=== PATIENT | male | born 1940 | race Caucasian/White ===

== ENCOUNTER → 2017-11-30 12:57 | Outpatient (CLI) | payer MEDICARE, OTHER ==
[2016-03-07 11:01] VITALS: BMI 35.6
[~2017-11-30 12:57] MED LIST: ATACAND HCT PO; BAYER CHEWABLE81 MG PO; NEURONTIN 300300 MG PO; PLAVIX75 MG PO; VOLTAREN75 MG PO; VYTORIN 10-20 M1 TAB PO
== END | disposition home or self-care (01) ==
LOC: D.US 12:57
DX: I65.23 Occlusion and stenosis of bilateral carotid arteries (principal)

== ENCOUNTER → 2018-12-24 16:04 | Outpatient (CLI) | payer MEDICARE, OTHER ==
[2016-03-07 11:01] VITALS: BMI 35.6
== END | disposition home or self-care (01) ==
LOC: D.US 13:30
PROVIDERS: ATTEND Internal Medicine Cardiovascular Disease
DX: I65.23 Occlusion and stenosis of bilateral carotid arteries (principal)

== ENCOUNTER → 2019-12-02 11:05 | Outpatient (CLI) | payer MEDICARE, OTHER ==
[2016-03-07 11:01] VITALS: BMI 35.6
== END | disposition home or self-care (01) ==
LOC: D.US 11:05
PROVIDERS: ATTEND Internal Medicine Cardiovascular Disease
DX: I65.23 Occlusion and stenosis of bilateral carotid arteries (principal)

== ENCOUNTER 2020-12-17 13:30 | Inpatient (IN) | payer MEDICARE, OTHER ==
[2020-12-17] VITALS (25 sets, daily range): BP systolic 54–180; BP diastolic 32–81; BMI 33.0
[~2020-12-17] VITALS: Ht 162.6 cm; Wt 93.6 kg
[2020-12-17] MEDS ORDERED: DONEPEZIL HCL10 MG PO (14:06)
[2020-12-17] MEDS ORDERED: ZOLOFT100 MG PO (14:06)
--- NOTE | 2020-12-17 14:15 | NUR ---
PT ARRIVES TO ROOM VIA WHEELCHAIR ESCORTED BY HOSPITAL VOLUNTEER STAFF AND SPOUSE. PT IS AAO X 4 AND ANSWERS ALL QUESTIONS APPROPRIATELY. PT IS WEAK WITH POSITION CHANGE AND AMBULATING FROM WHEELCHAIR TO BED. FALL PRECAUTIONS PLACED. UROSTOMY NOTED TO RLQ WITH DARK YELLOW URINE THAT APPEARED TO HAVE SEDIMENT/EXUDATE IN COLLECTION BAG. URINE SAMPLE WILL BE COLLECTED PER ORDER. PIV TO LEFT A/C X 2 ATTEMPT PLACED. PT TOLERATED WELL. INCENTIVE SPIROMETER GIVEN TO PT AND EDUCATION GIVEN. PT VERBALIZES UNDERSTANDING AND DENIES QUESTIONS. WILL COMPLETE ADMISSION REQUIREMENTS. PT AND PT SPOUSE DENY FURTHER NEEDS AT THIS TIME. ALL FALL PRECAUTIONS IN PLACE. BED IS IN THE LOWEST POSITION. CALL LIGHT AND BEDSIDE TABLE ARE WITHIN REACH. SIDE RAILS X 2. WILL CONT TO MONITOR.
--- NOTE | 2020-12-17 14:58 | NUR ---
UA COLLECTED FROM UROSTOMY.
[2020-12-17 15:20] LABS: BILIRUBIN NEGATIVE (NEGATIVE); KETONE NEGATIVE (NEGATIVE); NITRITE NEGATIVE (NEGATIVE); UROBILINOGEN NORMAL mg/dL (< 2)
[2020-12-17 15:27] LABS: SQUAMOUS EPITHELIAL 0-5 HPF (0-4); WHITE CELLS - URINE 25-50 HPF (0-1)
[2020-12-17 15:28] LABS: BACTERIA MOD HPF (NONE SEEN)
[2020-12-17 15:29] LABS: BASOPHILS 0.2 % (0-2); EOSINOPHILS 0.4 % (0-7); HEMATOCRIT 40.9 % (42.0-54.0); HEMOGLOBIN 13.4 g/dL (13.5-17.5); IMMATURE GRANULOCYTES 0.5 % (0-5); LYMPHOCYTE ABS# 1.14 10x3/uL (1.32-3.57); LYMPHOCYTES 8.7 % (15-50); MCH 30.9 pg (26.0-34.0); MCHC 32.8 g/dL (31.0-37.0); MCV 94.2 fL (80.0-100.0); MEAN PLATELET VOLUME 11.4 fL (7.4-10.4); MONOCYTES 8.1 % (2-11); NEUTROPHILS 82.1 % (40-80); PLATELET COUNT 224 10x3/uL (130-400); RBC 4.34 10x6/uL (4.20-6.10); RDW 14.2 % (11.5-14.5)
[2020-12-17 15:35] LABS: INR 1.39 (0.85-1.17); PROTIME 15.8 SECONDS (11.6-15.0)
[2020-12-17 15:47] LABS: ALBUMIN 2.6 g/dL (3.4-5.0); ANION GAP 20.4 mmol/L (8-16); BILIRUBIN - TOTAL 0.85 mg/dL (0.2-1.3); CALCIUM 9.6 mg/dL (8.5-10.1); CARBON DIOXIDE 17.6 mmol/L (21.0-32.0); PROTEIN - SERUM 6.6 g/dL (6.4-8.2)
--- NOTE | 2020-12-17 16:00 | NUR ---
CRITICAL LAB RESULTS RECD FROM [facility]. BUN 132 AND K+ OF 7.0. MAURICE MORENO APRN NOTIFIED OF CRITICAL LAB RESULTS. NO ORDERS AT THIS TIME.
--- NOTE | 2020-12-17 16:24 | NUR ---
PT TRANSPORTED OFF FLOOR VIA BED ESCORTED BY HOSPITAL STAFF FOR CT.
--- NOTE | 2020-12-17 16:33 | NUR ---
PT RETURNS TO ROOM VIA BED ESCORTED BY HOSPITAL STAFF AND IS AAO X 4 AND DENIES PRESENCE OF SOB/DYSPNEA/PAIN/N/V AT THIS TIME.
[2020-12-17 16:37] LABS: ALBUMIN 2.6 g/dL (3.4-5.0); ANION GAP 20.2 mmol/L (8-16); BILIRUBIN - TOTAL 0.81 mg/dL (0.2-1.3); CALCIUM 9.5 mg/dL (8.5-10.1); CARBON DIOXIDE 18.8 mmol/L (21.0-32.0); CREATININE - SERUM 4.9 mg/dL (0.6-1.3); PROTEIN - SERUM 6.5 g/dL (6.4-8.2)
--- NOTE | 2020-12-17 16:48 | NUR ---
ARRIVES WITH MED SURG STAFF, PLACED TO ICU SAFELY AND PUT ON MONITORS. NO COMPLAINTS AT THIS TIME.
--- NOTE | 2020-12-17 16:59 | NUR ---
PT TRANSFERRED TO ICU. REPORTS CALLED. ALL PERSONAL BELONGINGS SENT WITH PT. ATTEMPT PHONE CALL MADE TO PT SPOUSE TO NOTIFY OF TRANSFER. NO ANSWER. UNABLE TO LEAVE .
[2020-12-17] MEDS ORDERED: BACTRIM DS TAB1 EAC1 ×2 (17:11→17:17)
--- NOTE | 2020-12-17 17:35 | NUR ---
CORRECTION: PT DOES NOT HAVE A COLOSTOMY. PT HAS A UROSTOMY WITH YELLOW OUTPUT.
[2020-12-18] VITALS (89 sets, daily range): BP systolic 70–169; BP diastolic 27–108; BMI 32.6
[2020-12-18 04:28] LABS: BASOPHILS 0.1 % (0-2); EOSINOPHILS 1.4 % (0-7); HEMATOCRIT 37.9 % (42.0-54.0); HEMOGLOBIN 12.6 g/dL (13.5-17.5); IMMATURE GRANULOCYTES 0.6 % (0-5); LYMPHOCYTE ABS# 1.76 10x3/uL (1.32-3.57); MCH 30.4 pg (26.0-34.0); MCHC 33.2 g/dL (31.0-37.0); MCV 91.3 fL (80.0-100.0); MEAN PLATELET VOLUME 11.5 fL (7.4-10.4); MONOCYTES 11.2 % (2-11); NEUTROPHIL ABS# 17.32 10x3/uL (1.78-5.38); NEUTROPHILS 78.7 % (40-80); PLATELET COUNT 256 10x3/uL (130-400); RBC 4.15 10x6/uL (4.20-6.10)
[2020-12-18 04:39] LABS: ALBUMIN 2.3 g/dL (3.4-5.0); ANION GAP 15.6 mmol/L (8-16); BILIRUBIN - TOTAL 1.02 mg/dL (0.2-1.3); CALCIUM 8.7 mg/dL (8.5-10.1); POTASSIUM - SERUM 5.2 mmol/L (3.5-5.1); PROTEIN - SERUM 6.2 g/dL (6.4-8.2)
[2020-12-18 04:40] LABS: CARBON DIOXIDE 24.6 mmol/L (21.0-32.0)
[2020-12-18 15:11] LABS: ANION GAP 17.4 mmol/L (8-16); CALCIUM 9.4 mg/dL (8.5-10.1); POTASSIUM - SERUM 5.4 mmol/L (3.5-5.1)
--- NOTE | 2020-12-18 20:00 | NUR ---
REC'D REPORT AND ASSUMED CARE. INITIAL ASSESSMENT PER FLOW SHEET. LEFT ARM ART LINE IN PLACE, LINE LEVELED, FLUSHED AND ZEROED. NOT THAT BP IS POSITIONAL BUT NIBP WIS ALSO TAKING. WILL MONITOR BOTH FOR EFFECT FROM LEVOPHED.
--- NOTE | 2020-12-18 23:30 | NUR ---
S/W MORE CONFUSED AT PRESENT. REMOVING GOWN, TRYING TO PULL AT ART LINE. REMINDED TO LAY STILL. REPOSITIONS SELF
[2020-12-19] VITALS (49 sets, daily range): BP systolic 82–128; BP diastolic 40–78
[2020-12-19 03:37] LABS: BASOPHILS 0.1 % (0-2); EOSINOPHILS 0.1 % (0-7); HEMATOCRIT 39.2 % (42.0-54.0); IMMATURE GRANULOCYTES 0.4 % (0-5); LYMPHOCYTE ABS# 0.98 10x3/uL (1.32-3.57); MCH 30.7 pg (26.0-34.0); MCHC 33.2 g/dL (31.0-37.0); MCV 92.5 fL (80.0-100.0); MEAN PLATELET VOLUME 11.4 fL (7.4-10.4); MONOCYTES 3.3 % (2-11); NEUTROPHIL ABS# 17.87 10x3/uL (1.78-5.38); NEUTROPHILS 91.1 % (40-80); RBC 4.24 10x6/uL (4.20-6.10); RDW 14.2 % (11.5-14.5); WBC 19.6 10x3/uL (4.8-10.8)
[2020-12-19 03:38] LABS: PLATELET COUNT 187 10x3/uL (130-400)
[2020-12-19 03:51] LABS: ALBUMIN 2.2 g/dL (3.4-5.0); ANION GAP 20.6 mmol/L (8-16); BILIRUBIN - TOTAL 1.21 mg/dL (0.2-1.3); CALCIUM 9.3 mg/dL (8.5-10.1); CREATININE - SERUM 2.3 mg/dL (0.6-1.3); POTASSIUM - SERUM 4.6 mmol/L (3.5-5.1); VANCOMYCIN - RANDOM 8.4 ug/mL (10.0-20.0)
--- NOTE | 2020-12-19 05:30 | NUR ---
1 LARGE BM, GIVEN CHG BATH AND RADHA CARE DOWN. LINENS ALL CHANGED. ART LINE PULLED PER DR. STARK, CATHETER INTACT. PRESSURE HELD UNTIL NO FURTHER BLEEDING. PRESSURE BANDAGE APPLIED
[2020-12-20] VITALS (22 sets, daily range): BP systolic 93–136; BP diastolic 47–100
[2020-12-20 04:29] LABS: HEMATOCRIT 37.2 % (42.0-54.0); HEMOGLOBIN 12.3 g/dL (13.5-17.5); LYMPHOCYTE ABS# 1.17 10x3/uL (1.32-3.57); MCH 30.2 pg (26.0-34.0); MCHC 33.1 g/dL (31.0-37.0); MCV 91.4 fL (80.0-100.0); MEAN PLATELET VOLUME 11.4 fL (7.4-10.4); NEUTROPHIL ABS# 18.93 10x3/uL (1.78-5.38); PLATELET COUNT 173 10x3/uL (130-400); RBC 4.07 10x6/uL (4.20-6.10); RDW 14.1 % (11.5-14.5); WBC 21.9 10x3/uL (4.8-10.8)
[2020-12-20 04:39] LABS: EOSINOPHILS 1 % (0-7); LYMPHOCYTES 7 % (15-50); MONOCYTES 5 % (2-11); NEUTROPHILS 87 % (40-80); PLATELET ESTIMATE NORMAL
[2020-12-20 05:03] LABS: ALBUMIN 2.1 g/dL (3.4-5.0); ANION GAP 16.3 mmol/L (8-16); BILIRUBIN - TOTAL 1.64 mg/dL (0.2-1.3); CALCIUM 9.5 mg/dL (8.5-10.1); CARBON DIOXIDE 23.5 mmol/L (21.0-32.0); CREATININE - SERUM 2.4 mg/dL (0.6-1.3); POTASSIUM - SERUM 4.8 mmol/L (3.5-5.1); PROTEIN - SERUM 5.6 g/dL (6.4-8.2); VANCOMYCIN - RANDOM 14.1 ug/mL (10.0-20.0)
--- NOTE | 2020-12-20 07:30 | NUR ---
LAYING IN BED RESTING, PT SLIGHTLY CONFUSED, ATTEMPTED TO RE ORIENT, CALL LIGHT IN REACH, WILL MONITOR
--- NOTE | 2020-12-20 09:10 | NUR ---
DR CUEVAS HERE SEEING PATIENT
--- NOTE | 2020-12-20 15:00 | NUR ---
PT SLEEPING, NO DISTRESS NOTED, CALL LIGHT IN REACH, WILL MONITOR
--- NOTE | 2020-12-20 17:15 | NUR ---
assisted pt with jello, tolerated well, will monitor
[2020-12-21] VITALS (14 sets, daily range): BP systolic 99–115; BP diastolic 46–58
[2020-12-21 06:19] LABS: ANION GAP 16.3 mmol/L (8-16); BILIRUBIN - TOTAL 2.03 mg/dL (0.2-1.3); CALCIUM 9.3 mg/dL (8.5-10.1); CARBON DIOXIDE 22.4 mmol/L (21.0-32.0); CREATININE - SERUM 2.4 mg/dL (0.6-1.3); POTASSIUM - SERUM 4.7 mmol/L (3.5-5.1); PROTEIN - SERUM 5.4 g/dL (6.4-8.2); VANCOMYCIN - RANDOM 17.2 ug/mL (10.0-20.0)
[2020-12-21 06:39] LABS: BASOPHILS 0 % (0-2); EOSINOPHILS 0.1 % (0-7); HEMOGLOBIN 12.5 g/dL (13.5-17.5); IMMATURE GRANULOCYTES 0.5 % (0-5); LYMPHOCYTES 3.5 % (15-50); MCH 30.7 pg (26.0-34.0); MCHC 33.8 g/dL (31.0-37.0); MCV 90.9 fL (80.0-100.0); MEAN PLATELET VOLUME 11.6 fL (7.4-10.4); MONOCYTES 5.5 % (2-11); NEUTROPHIL ABS# 20.93 10x3/uL (1.78-5.38); NEUTROPHILS 90.4 % (40-80); PLATELET COUNT 159 10x3/uL (130-400); RBC 4.07 10x6/uL (4.20-6.10); RDW 14.6 % (11.5-14.5); WBC 23.1 10x3/uL (4.8-10.8)
--- NOTE | 2020-12-21 08:00 | NUR ---
ASSISTED PT WITH BREAKFAST, TOLERATED WELL
--- NOTE | 2020-12-21 10:09 | NUR ---
Nutrition follow-up: Pts diet downgraded to clear liquids from renal Pt tolerating clears per nurse; with some confusion. Labs reviewed Wt: 203# +BM RDN will monitor patients diet advancement, tolerance and progress. Follow-up: 12/23/20
--- NOTE | 2020-12-21 12:15 | NUR ---
assisting pt with lunch tray
--- NOTE | 2020-12-21 13:45 | NUR ---
therapy in with patient
--- NOTE | 2020-12-21 14:19 | NUR ---
report called to lenin del angel on med 2
--- NOTE | 2020-12-21 14:30 | NUR ---
pt transferred to 2111 via stretcher, belongings sent with patient, call light in reach, bedside report given
--- NOTE | 2020-12-21 15:32 | NUR ---
PATIENT AAOX3 SEMI FOLWERS IN BED, RESP EVEN AND NON LABORED, NO S/S OF DISTRESS, IV INFUSING, NO FURTHER NEEDS AT THIS TIME, MARINA, RAMOSP
--- NOTE | 2020-12-21 20:30 | NUR ---
REPORT RECEIVED. PT A&O, UP IN BED. NO S/S OF DISTRESS OBSERVED. RR EVEN & UNLABORED ON RA. R AC 20G WITH NS @ 50CC/HR INFUSING. R TRIALYSIS IN PLACE & SL. UROSTOMY BAG IN PLACE. BED LOCKED AND LOWERED, CL IN REACH. ASSESSMENT COMPLETE. WILL CONT POC.
[2020-12-22] VITALS (7 sets, daily range): BP systolic 103–147; BP diastolic 41–53
--- NOTE | 2020-12-22 02:06 | NUR ---
350CC REMOVED FROM UROSTOMY BAG.
[2020-12-22 07:02] LABS: HEMATOCRIT 40.1 % (42.0-54.0); HEMOGLOBIN 12.8 g/dL (13.5-17.5); MCH 29.8 pg (26.0-34.0); MCV 93.1 fL (80.0-100.0); MEAN PLATELET VOLUME 9.3 fL (7.4-10.4); PLATELET COUNT 173 10x3/uL (130-400); RDW 14.2 % (11.5-14.5); WBC 23.9 10x3/uL (4.8-10.8)
[2020-12-22 07:28] LABS: ALBUMIN 1.8 g/dL (3.4-5.0); ANION GAP 18.9 mmol/L (8-16); BILIRUBIN - TOTAL 2.33 mg/dL (0.2-1.3); CALCIUM 8.1 mg/dL (8.5-10.1); POTASSIUM - SERUM 3.9 mmol/L (3.5-5.1); PROTEIN - SERUM 4.9 g/dL (6.4-8.2); VANCOMYCIN - RANDOM 18.1 ug/mL (10.0-20.0)
--- NOTE | 2020-12-22 11:37 | NUR ---
PATIENT AAOX4 SITTING IN BEDSIDE CHAIR WITH THE HELP OF PT, AT BEDSIDE, RESP EVEN AND NON LABORED, NO S/S OF DISTRESS, MEDICATIONS ADMINISTERED WITH NO COMPLICATIONS, PATIENTS ASKED ABOUT WHEN DIALYSIS WOULD START AGAIN, MACHINE HEEL SEAT LASTER ANA DENNIS STATED THAT WE MAY NOT HAVE TO CONTINUE DIALYSIS A LONG KIDNEY FUNCTIONS STAY WNL FOR PATIENT, DRINKS PROVIDED, NO FURTHER NEEDS AT THIS TIME, MARINA, DAINA
[2020-12-22 13:49] LABS: LYMPHOCYTES 16 % (15-50); MONOCYTES 14 % (2-11); NEUTROPHILS 69 % (40-80); PLATELET ESTIMATE NORMAL
--- NOTE | 2020-12-22 14:51 | NUR ---
I have reviewed this patient and I concur with the Shift Assessment completed by the Licensed Practical Nurse today this shift.
--- NOTE | 2020-12-22 14:55 | NUR ---
ALERT. ASSIST UP TO BEDSIDE COMMODE. PRBC TRANSFUSION CONTINUED. NO SIGNS OF REACTION. INCREASE RATE TO 120ml/HR.
--- NOTE | 2020-12-22 23:17 | NUR ---
1999-+ RESTING IN BED. SLOW TO RESPOND TO QUESTIONS NOT ABLE TO GIVE ME A REASON WHY HE IS IN THE HOSPITAL BESIDES THAT HE IS SICK. HAS UROSTOMY THAT IS DRAINING YELLOW URINE. PT STATES THAT HE DOESN'T TAKE CARE OF IT HIS DOES.
[2020-12-23] VITALS: BP 133/32
[2020-12-23 04:00] VITALS: BP 114/51
--- NOTE | 2020-12-23 04:51 | NUR ---
AM LABS DRAWN FROM TRIALYSIS, LABELED AT BEDSIDE, TAKEN TO LAB. UROSTOMY BAG WAS TWISTED AT BASE OF BAG, DARK YELLOW URINE WITH PURULENT STRANDS/SEDIMENT THROUGHOUT. 550ML UOP OVER NIGHT
[2020-12-23 05:34] LABS: BASOPHILS 0.5 % (0-2); EOSINOPHILS 3.2 % (0-7); HEMATOCRIT 38.6 % (42.0-54.0); HEMOGLOBIN 12.3 g/dL (13.5-17.5); LYMPHOCYTES 5.4 % (15-50); MCH 29.6 pg (26.0-34.0); MCHC 31.8 g/dL (31.0-37.0); MCV 92.9 fL (80.0-100.0); MEAN PLATELET VOLUME 9.4 fL (7.4-10.4); MONOCYTES 6.9 % (2-11); PLATELET COUNT 151 10x3/uL (130-400); RBC 4.16 10x6/uL (4.20-6.10); RDW 14.2 % (11.5-14.5); WBC 22.1 10x3/uL (4.8-10.8)
[2020-12-23 07:19] LABS: ALBUMIN 1.9 g/dL (3.4-5.0); BILIRUBIN - TOTAL 3.04 mg/dL (0.2-1.3); CARBON DIOXIDE 17.7 mmol/L (21.0-32.0); CREATININE - SERUM 2.3 mg/dL (0.6-1.3); PROTEIN - SERUM 5.3 g/dL (6.4-8.2)
[2020-12-23 07:20] LABS: POTASSIUM - SERUM 4.7 mmol/L (3.5-5.1)
[2020-12-23 08:00] VITALS: BP 148/46
[2020-12-23 10:48] LABS: CKMB 3.1 U/L (0.0-3.6); CREATINE KINASE 339 UL (21-232)
--- NOTE | 2020-12-23 12:27 | NUR ---
Nutrition Reassessment/Follow-up: Pt sleeping soundly this AM. Discussed in IDT. Diet advanced to cardiac. Noted plans to remove TDC with no further anticipated need for HD. Rehab screen pending. Diet: Cardiac No new wt; last wt: 202.8# (12/21)Adj BW: 148.2# Labs noted: BUN 79, Cre 2.3, GFR 29, Alb 1.9, elev LFTs Meds noted: Florajen, Protonix, NS @ 50, electrolyte protocol Est needs: 0899-0662 kcal/day (25-30 kcal/kg adj BW) 55-75 g protein/day (0.6-0.8 g/kg actual BW) 7932-9426 mL fluid/day (1 mL/kcal) or per MD Nutrition Diagnosis: -Altered nutrition-related lab values R/T kidney dysfunction AEB BUN 79, Cre 2.3, GFR 29. Nutrition Goals: -PO intake >=75% avg of meals/snacks. -Stable dry wt. Nutrition Intervention: -Encourage PO intake and honor food preferences within diet restrictions. -Monitor wt. -RD will follow up within 5 days.
[2020-12-23 16:00] VITALS: BP 131/61
--- NOTE | 2020-12-23 18:02 | NUR ---
I have reviewed this patient and I concur with the Shift Assessment completed by the Licensed Practical Nurse today this shift.
[2020-12-23 21:32] VITALS: BP 134/46
[2020-12-24] VITALS (7 sets, daily range): BP systolic 127–160; BP diastolic 30–68
--- NOTE | 2020-12-24 01:54 | NUR ---
12/23/20 @ 2015 PT RESTING IN BED. ENCOURAGED TO MOVE UPPER EXTREMITIES & REPOSITION SELF TO HELP WITH EDEMA & PNUEMONIA PREVENTION. UNABLE TO COMPREHEND. DINNER TRAY WAS STILL SITTING ON TABLE & HAD'T BEEN TOUCHED BY PT. OFFERED TO ASSIST HIM. HE JUST WANTED SOMETHING TO DRINK. WILL CONTINUE TO MONITOR.
[2020-12-24 06:24] LABS: HEMATOCRIT 40.8 % (42.0-54.0); HEMOGLOBIN 13.7 g/dL (13.5-17.5); LYMPHOCYTE ABS# 1.95 10x3/uL (1.32-3.57); MCHC 33.6 g/dL (31.0-37.0); MCV 89.3 fL (80.0-100.0); MEAN PLATELET VOLUME 12.2 fL (7.4-10.4); PLATELET COUNT 111 10x3/uL (130-400); RBC 4.57 10x6/uL (4.20-6.10); RDW 14.8 % (11.5-14.5)
--- NOTE | 2020-12-24 06:50 | NUR ---
PATIENT RESTING IN BED. NO CURRENT PAIN OR DISTRESS. ALERT AND CAN FOLLOW COMMANDS. SLOW TO RESPOND. RSP EVEN AND UNLABORED
[2020-12-24 07:11] LABS: LYMPHOCYTES 13 % (15-50); NEUTROPHILS 87 % (40-80); PLATELET ESTIMATE NORMAL
[2020-12-24 07:41] LABS: ALBUMIN 1.9 g/dL (3.4-5.0); ANION GAP 21.1 mmol/L (8-16); BILIRUBIN - TOTAL 4.26 mg/dL (0.2-1.3); CALCIUM 9.4 mg/dL (8.5-10.1); CARBON DIOXIDE 16.2 mmol/L (21.0-32.0); CREATININE - SERUM 2.5 mg/dL (0.6-1.3); POTASSIUM - SERUM 5.3 mmol/L (3.5-5.1); PROTEIN - SERUM 5.4 g/dL (6.4-8.2); VANCOMYCIN - RANDOM 19.9 ug/mL (10.0-20.0)
--- NOTE | 2020-12-24 09:37 | NUR ---
PATIENT AWAKE ALERT TO SELF, FOLLOWS DIRECTIONS. WILL ANSWER QUESTIONS. IS SLOW TO RESPOND. RESP EVEN AND UNLABORED. O2 SAT 98 ON ROOM AIR. IV TO R FOREARM PATENT. RUNNING KVO LACTATED RINGERS. HEART SOUNDS SR WITH PVCS PER TELE. UROSTOMY WITH THICK DARK YELLOW URINE SOME SEDIMENT NOTED. PATIENT IS EDEMEDOUS BILATERAL LOWER AND UPPER EXTREMITIES. PITTING +3 PATIENT IS FULL ASSIST REQUIRES ASSISTANCE WITH EATING AND ALL ADLS.
--- NOTE | 2020-12-24 14:31 | NUR ---
NOTIFIED RUCHI ALEJO RN THAT PATIENT IS ACCEPTED TO REHAB WHEN IS STABLE FOR DISCHARGE. - JACOB VIEIRA LPN, CLINICAL LIAISON
--- NOTE | 2020-12-24 17:44 | NUR ---
PATIENT RESTING COMFORTABLY, IV ABT ADMINISTERED WITH NO ADVERSE REACTIONS. RESP EVEN AND UNLABORED. DIET TO FULL LIQUID. MORE INTERACTIVE LATER IN SHIFT.
--- NOTE | 2020-12-24 21:31 | NUR ---
PT IN BED, APPEARS SOB OF BREATH W/ LABORED, SHALLOW BREATHING. O2 SAT MID 80'S ON ROOM AIR. 2L/NC PLACED ON PT. CXR ORDERED. CRACKLES THROUGHOUT BILAT LUNG BASES. I.S. ENCOURAGED WEAK EFFORT. TELEMETRY-SR 74. HAD LARGE BM, CBC/CLC DONE. PT C/O PAIN WITH TURNING FROM SIDE TO SIDE. GENERALIZED ANASARCA 2-3+ CONTACTED ALCIDES STRATTON. MESSAGE LEFT FOR NEPHROLOGY W/ ANSERING SERVICE
[2020-12-25 03:44] VITALS: BP 153/42
[2020-12-25 06:01] LABS: BASOPHILS 0.6 % (0-2); EOSINOPHILS 2.8 % (0-7); HEMATOCRIT 36.8 % (42.0-54.0); LYMPHOCYTES 6.4 % (15-50); MCH 29.9 pg (26.0-34.0); MCHC 32.5 g/dL (31.0-37.0); MCV 92.2 fL (80.0-100.0); MEAN PLATELET VOLUME 9.7 fL (7.4-10.4); MONOCYTES 6.5 % (2-11); NEUTROPHILS 83.7 % (40-80); PLATELET COUNT 148 10x3/uL (130-400); RBC 3.99 10x6/uL (4.20-6.10); RDW 14.6 % (11.5-14.5); WBC 31.5 10x3/uL (4.8-10.8)
[2020-12-25 06:13] LABS: ALBUMIN 1.9 g/dL (3.4-5.0); ANION GAP 22.8 mmol/L (8-16); BILIRUBIN - TOTAL 4.97 mg/dL (0.2-1.3); CALCIUM 9.6 mg/dL (8.5-10.1); CARBON DIOXIDE 15.5 mmol/L (21.0-32.0); CREATININE - SERUM 2.5 mg/dL (0.6-1.3); POTASSIUM - SERUM 5.3 mmol/L (3.5-5.1); PROTEIN - SERUM 4.6 g/dL (6.4-8.2); VANCOMYCIN - RANDOM 14.8 ug/mL (10.0-20.0)
--- NOTE | 2020-12-25 06:50 | NUR ---
RECIEVED BEDSIDE REPORT. PATIENT AROUSED TO VOICE. UROSTOMY INTACT ONLY 350 OUTPUT LAST NIGHT. BUN ELEVATED 105 THIS AM. RESP UNLABORED AT THIS TIME.
--- NOTE | 2020-12-25 07:52 | NUR ---
PATIENT AWAKE AND SLOW TO RESPOND. RESP EVEN AND UNLABORED. LUNG SOUNDS WITH CRACKLES IN LOWER BASES. LABS ELEVATED. WBC 31.5 EDEMA TO BILATERAL UPPER AND LOWER EXTREMITIES PITTING +4. SPOKE WITH DR. AGUILERA ABOUT CONDITION OF PATIENT AND LABS. DR. AGUILERA STATED "HE WOULD EXAMINE PATIENT AND PUT IN ORDERS NEEDED."
[2020-12-25 09:20] VITALS: BP 131/45
--- NOTE | 2020-12-25 09:28 | OP ---
PATIENT NAME: SANA ZHAO MEDICAL RECORD: [id number] :39 LOCATION:D.M2 D.2111 ADMISSION DATE:12/17/20 SURGEON: NIKO DYKES MD DATE OF OPERATION: 12/17/2020 PREOPERATIVE DIAGNOSES: 1. Need for IV access. 2. Acute renal failure. 3. Urosepsis. 4. Septic shock. 5. Lactic acidosis. POSTOPERATIVE DIAGNOSES: 1. Need for IV access. 2. Acute renal failure. 3. Urosepsis. 4. Septic shock. 5. Lactic acidosis. PROCEDURE: 1. Right IJ 20-cm Trialysis catheter placement. 2. Left radial art line placement. SURGEON: Niko Dykes MD DESCRIPTION OF PROCEDURE: The patient's right neck was prepped and draped in sterile fashion. A 5 mL of 1% lidocaine with epinephrine was infused into the surrounding tissues. Using ultrasound guidance, a needle was used to cannulate the right internal jugular vein. A guidewire was advanced with ease. Over this wire, a dilator was placed followed by the Trialysis catheter. The catheter aspirated nonpulsatile dark blood and flushed easily in all 3 ports. This was sutured into place with 3-0 nylons and dressed appropriately. We then prepped the patient's right radial region. A total of 3 mL of 1% lidocaine with epinephrine was infused into the surrounding tissues. A 20-gauge dart arterial catheter was inserted to the left radial artery. We were able to cannulate the vessel and had good pulsatile flow. This was sutured into place with 3-0 silks. At the conclusion of this, we noticed that there was a good arterial tracing present that correlated with the cuff pressure. This was then dressed appropriately. COMPLICATIONS: None. CONDITION Fair. ANESTHESIA: Local. BLOOD LOSS: Minimal. Procedure done in the ICU at the bedside. TRANSINT:[id number] Voice Confirmation ID: [id number] DOCUMENT ID: [id number] OPERATIVE REPORT [id number] SANA ZHAO NIKO DYKES MD at 0928 CC: [id number] DICTATION DATE: 12/18/20 08 SCREW MACHINE SET UP OPERATOR: 12/18/20 1425 ADM IN [id number] [place] [address]
[2020-12-25 12:42] VITALS: BP 145/50
--- NOTE | 2020-12-25 13:16 | NUR ---
Nutrition Follow-up: Pt reports poor appetite/PO intake. Declines nutrition supplements. Nursing reports +4 pitting edema to kane upper & lower extremities. Per renal, if 3PM renal labs worsening, will need to consider resuming HD. Diet: Full Liquid Wt: 202# (12/24) Last BM: 12/24 Labs noted: K+ 5.3, BUN 105, Cre 2.5, GFR 26, elev LFTs, Alb 1.9, Amylase 180, Lipase 541 Meds noted: Protonix, Florajen, NS @ 100, electrolyte protocol -Encourage PO intake and honor food preferences within diet restrictions. -Monitor wt. -RD will follow up within 3-4 days.
--- NOTE | 2020-12-25 14:19 | NUR ---
SCDS IN PLACE AND IN USE. PATIENT RESTING COMFORTABLY. NO CURRENT PAIN OR DISTRESS. RESP EVEN AND UNLABORED. LUNG SOUNDS WET WITH LOWER LOBE CRACKLES. HEART SOUNDS REG RATE AND RYTHYM. TELE SR PVC. BILATERAL LOWER AND UPPER EXTREMITEY EDEMA NOTED +2.
[2020-12-25 15:43] LABS: ALBUMIN 1.8 g/dL (3.4-5.0); ANION GAP 24.3 mmol/L (8-16); BILIRUBIN - TOTAL 5.19 mg/dL (0.2-1.3); CARBON DIOXIDE 13.9 mmol/L (21.0-32.0); CREATININE - SERUM 2.7 mg/dL (0.6-1.3); POTASSIUM - SERUM 5.2 mmol/L (3.5-5.1); PROTEIN - SERUM 4.5 g/dL (6.4-8.2)
--- NOTE | 2020-12-25 15:57 | NUR ---
CONTACTED RENAL ABOUT CRITICAL LAB BUN 113 NO CHANGES AT THIS TIME ORDER.
[2020-12-25 16:57] VITALS: BP 129/41
--- NOTE | 2020-12-25 19:30 | NUR ---
RECEIVED REPORT, WILL ASSUME CARE OF PT, SLEEPING, BUT AROUSED TO VOICE, IV-R. UPPER ARM, [id number], BED IS LOW, SRX2, CALL LIGHT IN REACH, WILL CONTINUE PLAN OF CARE
[2020-12-25 20:45] VITALS: BP 147/39
[2020-12-26] VITALS (45 sets, daily range): BP systolic 71–153; BP diastolic 23–59; Ht 162.6 cm; Wt 93.6 kg
[2020-12-26 05:17] LABS: BASOPHILS 0.4 % (0-2); HEMATOCRIT 37.2 % (42.0-54.0); HEMOGLOBIN 12.1 g/dL (13.5-17.5); LYMPHOCYTES 8.5 % (15-50); MCH 29.7 pg (26.0-34.0); MCHC 32.5 g/dL (31.0-37.0); MCV 91.4 fL (80.0-100.0); MEAN PLATELET VOLUME 9.2 fL (7.4-10.4); MONOCYTES 7.9 % (2-11); NEUTROPHILS 80.2 % (40-80); PLATELET COUNT 135 10x3/uL (130-400); RBC 4.07 10x6/uL (4.20-6.10); RDW 14.6 % (11.5-14.5); WBC 28.3 10x3/uL (4.8-10.8)
[2020-12-26 05:36] LABS: ALBUMIN 1.8 g/dL (3.4-5.0); ANION GAP 22.7 mmol/L (8-16); BILIRUBIN - TOTAL 5.29 mg/dL (0.2-1.3); CALCIUM 9.4 mg/dL (8.5-10.1); CARBON DIOXIDE 14.6 mmol/L (21.0-32.0); CREATININE - SERUM 3.3 mg/dL (0.6-1.3); POTASSIUM - SERUM 5.3 mmol/L (3.5-5.1); VANCOMYCIN - RANDOM 14.9 ug/mL (10.0-20.0)
--- NOTE | 2020-12-26 07:25 | NUR ---
RECIEVED REPORT, LAB VALUES INCREASING GETTING WORSE. PATIENT WILL AROUSE FOR A FEW SECONDS. EDEMA PRESENT. O2 IN USE VAI NASAL CANNULA.
--- NOTE | 2020-12-26 11:18 | NUR ---
REPORT CALLED TO ICU GIVEN TO ARIADNE. PATIENT TRANSFERED TO ROOM 2303 FAMILY NOTIFIED OF CHANGES. CONSENTS SIGHED BY SPOUSE FOR TRIALYSIS.
--- NOTE | 2020-12-26 11:20 | NUR ---
PT ARRIVED TO UNIT AT THIS TIME VIA BED ACCOMPANIED BY HOSPITAL STAFF. PT TRANSFERRED TO BED VIA STAFF ASSIST. PT NOTED TO OLEG DURING REPOSITIONING. HE ONLY ANSWERS SHORT ANSWERS SUCH YES/NO QUESTIONS. ALSO WAS ABLE TO HAVE HIM VERIFY HIS NAME, HE STATED THE YEAR IS 2020 AND HE IS IN THE HOSPITAL. COULD NOT ANSWER ANY OTHER QUESTIONS AND STATED HE DID NOT KNOW WHY HE WAS IN THE HOSPITAL. REORIENTATION PROVIDED. NOTED WHEN PT ANSWERS QUESTIONS HIS ANSWERS TAKE A MOMENT BEFORE HE ANSWERS AND SOMETIMES DOES NOT ANSWERS QUESTIONS. VSS. DR DYKES IN ROOM TO PLACE TRIALYSIS LINE. CONSENTS ARE SIGNED AND IN CHART. WILL NOTIFY DIALYSIS NURSE WHEN OKAY TO USE TRIALYSIS.
--- NOTE | 2020-12-26 13:49 | NUR ---
DIALYSIS NURSE IN ROOM SETTING UP HD OCTAVIO. FAMILY AT BEDSIDE, UPDATES PROVIDED. NO ACUTE CHANGE IN PT STATUS. VSS. CALL LIGHT IN REACH. BED ALARM ON. REPOSITIOING PROVIDED Q2H, ORAL CARE PROVIDED Q2H. WILL CONTINUE PLAN OF CARE.
--- NOTE | 2020-12-26 18:01 | NUR ---
LYING IN BED RESTING AT THIS TIME WITH EYES CLOSED. NOTED TO GROAN AT TIMES AND SOMETIMES WILL SAY A WORD. LEVOPHED TITRATED TO ORDER. NO ACUTE DISTRESS NOTED. WILL CONTINUE PLAN OF CARE.
[2020-12-26 20:33] LABS: CKMB 2.5 U/L (0.0-3.6); CREATINE KINASE 490 UL (21-232)
[2020-12-26 20:36] LABS: TROPONIN-I 0.258 ng/mL (0.000-0.060)
--- NOTE | 2020-12-26 20:52 | NUR ---
SPOKE WITH DR. OBRIEN REPORTED ABNORMAL LABS. NEW ORDER RECEIVED FOR CARDIAC CONSULT. [address] RILEY STUDENT SUCCESS COUNSELOR FOR CARDIOLOGY, NOTIFIED OF CONSULT AND UPADATED ON PATIENT. NO NEW ORDERS, WILL SEE TOMORROW.
[2020-12-27] VITALS (70 sets, daily range): BP systolic 94–144; BP diastolic 30–65
[2020-12-27 06:18] LABS: ALBUMIN 1.9 g/dL (3.4-5.0); ANION GAP 28.6 mmol/L (8-16); BILIRUBIN - TOTAL 5.82 mg/dL (0.2-1.3); CALCIUM 8.9 mg/dL (8.5-10.1); CARBON DIOXIDE 14.5 mmol/L (21.0-32.0); CREATININE - SERUM 3.7 mg/dL (0.6-1.3); POTASSIUM - SERUM 5.1 mmol/L (3.5-5.1); PROTEIN - SERUM 4.7 g/dL (6.4-8.2)
[2020-12-27 06:28] LABS: HEMATOCRIT 34.4 % (42.0-54.0); MCH 29.3 pg (26.0-34.0); MCHC 31.8 g/dL (31.0-37.0); MCV 92.2 fL (80.0-100.0); MEAN PLATELET VOLUME 9.6 fL (7.4-10.4); PLATELET COUNT 117 10x3/uL (130-400); RBC 3.73 10x6/uL (4.20-6.10); RDW 14.4 % (11.5-14.5); WBC 24.5 10x3/uL (4.8-10.8)
[2020-12-27 08:10] LABS: EOSINOPHILS 2 % (0-7); LYMPHOCYTES 12 % (15-50); MONOCYTES 4 % (2-11); NEUTROPHILS 75 % (40-80)
[2020-12-27 08:11] LABS: ANISOCYTOSIS 1+; POLYCHROMASIA OCC; SCHISTOCYTES OCC
[2020-12-27 08:13] LABS: PLATELET ESTIMATE NORMAL
--- NOTE | 2020-12-27 08:52 | NUR ---
ASSISTED PT WITH FEEDING FOR BREAKFAST. HE DRANK ALL OF HIS ORANGE JUICE AND MOST OF HIS WATER, TOOK A FEW BITES OF CHOCOLATE PUDDING AND GRITS BEFORE STATING HE WAS DONE. WILL CONTACT DIETARY TO BRING ENSURE WITH NEXT MEAL TO HELP INCREASE PTS NUTRIIONAL INTAKE. NO S/S ASPIRATION, NO COUGH. PT DID REQUIRE [id number] DIRECTIONS DURING THIS SUCH WHEN DRINKING TO OPEN HIS MOUTH, CLOSE LIPS AROUND STRAW, AND TO SUCK ON STRAW FOR A DRINK. TOLERATED WELL. VSS. WILL CONTINUE PLAN OF CARE.
--- NOTE | 2020-12-27 14:01 | NUR ---
DR CHRISTENSEN WITH CARDIOLOGY HERE TO SEE PT, UPDATES PROVIDED. ORDER FOR ECHO RECIEVED TO BE PERFORMED TOMORROW. PHYSIICAN ALSO SPOKE WITH PTS GRANDSON. NO ACUTE DISTRES NOTED. PT RECIEVING DIALYSIS, LEVOPHED TITRATED TO ORDER. WILL CONTINUE PLAN OF CARE.
--- NOTE | 2020-12-27 14:29 | NUR ---
LYING IN BED RESTING WITH EYES CLOSED, RESPIRATIONS STEADY AND UNLABORED. PT AWAKENS WHEN SPOKEN TO. FAMILY AT BEDSIDE, UPDATES PROVIDED. REPOSITIONED Q2H, ORAL CARE PROVIDED Q2H, WILL CONTINUE PLAN OF CARE.
--- NOTE | 2020-12-27 18:23 | NUR ---
NO ACUTE DISTRESS NOTED. VSS. TURNED Q2H, ORAL CARE PROVIDED Q2H. LEVOPHED TITRATED TO ORDER.
[2020-12-28] VITALS (45 sets, daily range): BP systolic 46–140; BP diastolic 24–98
[2020-12-28 05:18] LABS: BASOPHILS 0.7 % (0-2); EOSINOPHILS 2.4 % (0-7); HEMATOCRIT 32.9 % (42.0-54.0); HEMOGLOBIN 10.6 g/dL (13.5-17.5); LYMPHOCYTES 12.3 % (15-50); MCH 30.1 pg (26.0-34.0); MCHC 32.3 g/dL (31.0-37.0); MCV 93.2 fL (80.0-100.0); MEAN PLATELET VOLUME 9.5 fL (7.4-10.4); MONOCYTES 8.8 % (2-11); NEUTROPHILS 75.8 % (40-80); PLATELET COUNT 105 10x3/uL (130-400); RBC 3.53 10x6/uL (4.20-6.10)
[2020-12-28 06:00] LABS: ALBUMIN 2.1 g/dL (3.4-5.0); ANION GAP 32.5 mmol/L (8-16); BILIRUBIN - TOTAL 6.78 mg/dL (0.2-1.3); CALCIUM 8.5 mg/dL (8.5-10.1); CARBON DIOXIDE 11.3 mmol/L (21.0-32.0); CREATININE - SERUM 3.9 mg/dL (0.6-1.3); MAGNESIUM - SERUM 2.2 mg/dL (1.8-2.4); PHOSPHOROUS 6.9 mg/dL (2.5-4.9); POTASSIUM - SERUM 4.8 mmol/L (3.5-5.1); PROTEIN - SERUM 4.9 g/dL (6.4-8.2)
--- NOTE | 2020-12-28 07:00 | NUR ---
REPORT RECEIVED. ASSESSMENT COMPLETE PER FLOW SHEET. VSS. PT RESTING COMFORTABLY.
--- NOTE | 2020-12-28 11:45 | NUR ---
DR SAUNDERS AT BEDSIDE GIVNE UPDATE PT STATUS DECLINING. PT INCREASINGLY UNRESPONSIVE, O2 SAT DECLINING O2 AT 6L VIA NC PT HAVING PERIODS OF APNEA AND UNABLE TO COUGH UP SPUTUM. STATED TO CONSULT PULMONOLOGY.
--- NOTE | 2020-12-28 11:50 | NUR ---
DR HERNANDEZ PAGED GIVEN UDPATE REGAURDING PT STATUS STATED TO PLACE PT ON BIPAP AND OBTAIN ABG.
--- NOTE | 2020-12-28 12:03 | NUR ---
GERARDO WITH RT PAGED GIVEN UPDATE. STATED WOULD BE ON HER WAY
--- NOTE | 2020-12-28 12:44 | NUR ---
Nutrition follow-up: Pt now unresponsive on BIPAP Diet order: Full liquids with no po intake recorded labs reviewed Wt: 206# Pt speech pt is too lethargic to eat Recommend nutrition support as soon as medically feasible; may consider ProcalAmine PPN @ 50 ml/hr for short-term nutrition support RDN follow-up: 12/30/20
--- NOTE | 2020-12-28 13:08 | OP ---
PATIENT NAME: SANA ZHAO MEDICAL RECORD: [id number] :39 LOCATION:.[facility] D.2303 ADMISSION DATE:12/17/20 SURGEON: NIKO DYKES MD DATE OF OPERATION: 12/26/2020 PREOPERATIVE DIAGNOSES: 1. Acute renal failure. 2. Fluid overload secondary to acute renal failure. 3. Urosepsis. POSTOPERATIVE DIAGNOSES: 1. Acute renal failure. 2. Fluid overload secondary to acute renal failure. 3. Urosepsis. PROCEDURE: Right IJ 15-cm Trialysis catheter placement. SURGEON: Niko Dykes MD DESCRIPTION OF PROCEDURE: The patient's right neck was prepped and draped in sterile fashion. A 5 mL of 1% lidocaine was infused into the subcutaneous tissues. Using ultrasound guidance, a needle was used to cannulate the right internal jugular vein and a guidewire was advanced with ease. Over this wire, a dilator was placed followed by the triple lumen catheter. The catheter aspirated nonpulsatile dark blood and flushed easily with all 3 ports. This was sutured into place with 2-0 nylon and dressed appropriately. COMPLICATIONS: None. CONDITION: Fair. ANESTHESIA: Local. BLOOD LOSS: Minimal. Procedure done in the ICU at the bedside. TRANSINT:[id number] Voice Confirmation ID: [id number] DOCUMENT ID: [id number] NIKO DYKES MD at 1308 CC: [id number] DICTATION DATE: 12/26/20 1155 MANAGEMENT TRAINEE MARKETING: 12/26/20 1207 ADM IN [id number] [place] [address]
[2020-12-28 13:41] LABS: HEMATOCRIT 34.9 % (42.0-54.0); HEMOGLOBIN 10.4 g/dL (13.5-17.5); MCH 29.4 pg (26.0-34.0); MCHC 29.7 g/dL (31.0-37.0); MEAN PLATELET VOLUME 9.1 fL (7.4-10.4); PLATELET COUNT 109 10x3/uL (130-400); RBC 3.54 10x6/uL (4.20-6.10); RDW 16.5 % (11.5-14.5); WBC 35.1 10x3/uL (4.8-10.8)
[2020-12-28 13:42] LABS: MCV 98.7 fL (80.0-100.0)
--- NOTE | 2020-12-28 13:58 | NUR ---
DR AWAN PAGED GIVEN UDPATE REGAURDING PT STATUS STATED TO PROCEED WITH DIALYSIS TODAY YANY RN WITH RENAL NOTIFIED AND SPOKE WITH DR AWAN WELL.
[2020-12-28 14:01] LABS: INR 4.92 (0.85-1.17); PROTIME 42.7 SECONDS (11.6-15.0)
[2020-12-28 14:27] LABS: ALKALINE PHOSPHATASE 308 U/L (30-120); ALT (SGPT) 388 U/L (10-68); BILIRUBIN - TOTAL 7.01 mg/dL (0.2-1.3); CALCIUM 8.3 mg/dL (8.5-10.1); CHLORIDE - SERUM 101 mmol/L (98-107); MAGNESIUM - SERUM 2.7 mg/dL (1.8-2.4); PROTEIN - SERUM 4.7 g/dL (6.4-8.2); SODIUM 144 mmol/L (136-145); UREA NITROGEN 67 mg/dL (7-18)
[2020-12-28 14:29] LABS: CALC OSMOLALITY 307 mosm/kg (275-300); CREATININE - SERUM 4.9 mg/dL (0.6-1.3); GLUCOSE 131 mg/dL (74-106); POTASSIUM - SERUM 5.6 mmol/L (3.5-5.1); eGFR NON AFRICAN AMERICAN 12 mL/min (90-120)
[2020-12-28 14:30] LABS: CREATINE KINASE 2508 UL (21-232)
[2020-12-28 14:32] LABS: PHOSPHOROUS 11.8 mg/dL (2.5-4.9)
[2020-12-28 14:33] LABS: TROPONIN-I 1.775 ng/mL (0.000-0.060)
[2020-12-28 14:34] LABS: CKMB 40.4 U/L (0.0-3.6)
[2020-12-28 14:48] LABS: EOSINOPHILS 1 % (0-7); LYMPHOCYTES 33 % (15-50); MONOCYTES 9 % (2-11); NEUTROPHILS 54 % (40-80)
[2020-12-28 14:49] LABS: ANISOCYTOSIS OCC; PLATELET ESTIMATE DECREASED
--- NOTE | 2020-12-28 16:30 | NUR ---
DAILYSIS AT BEDSIDE. HR NOTED AT 78 FAINT PULSE FELT VIA L CAROTID, UNABLE TO OBTAIN BP, O2 SAT UNREGISTERABLE. PT RR AGONAL. NURSE BEGAN BAGGING AT THIS TIME. LEVOPHED ADM PER ORDER. PT REMOVED FROM DIALYSIS PER DR AWAN. FAMILY GIVEN UPDATE REGUARDING PT STATUS. DR HERNANDEZ PAGED GIVEN UPDATE. ORDERS OBTAINED FOR PRN PRESSORS IF NEEDED.
--- NOTE | 2020-12-28 18:04 | NUR ---
PT NOTED TO BE IN A FIB RVR AT A RATE OF 130. DR HERNANDEZ PAGED GIVEN UPDATE NO NEW ORDERS AT THIS TIME.
[2020-12-29] VITALS: BP 52/32
[2020-12-29 00:15] VITALS: BP 48/38
--- NOTE | 2020-12-29 01:28 | NUR ---
AT APPROX 2215 PATIENT ERIC ZHAO REQUESTED THAT THIS NURSE TURN OFF THE THE LEVOPHED. DISCUSSED WITH ERIC ZHAO AND FAMILY THAT THE LEVOPHED IS THE MEDICATION THAT IS KEEPING BLOOD PRESSURE HIGH ENOUGH TO SUSTAIN LIFE, CODE STATUS DISCUSSED. ERIC ZHAO MADE THE DECISION TO MAKE PATIENT A DNR AND TURN OFF LEVOPHED. 2240 DR. HERNANDEZ PAGERenate ORDERS RECEIVED. 2245 LEVOPHED DISCONTINUED AND PRN MORPHINE GIVEN FOR COMFORT. 0101 PATIENT ASYSTOLE ON MONITOR. NO PULSES PALPABLE. 2 RN VERIFIED. 0115 NELLY GARSIA APN PAGED, AWAITING RETURN CALL.
--- NOTE | 2020-12-29 01:36 | NUR ---
RECEIVED RETURN CALL FROM NELLY GARSIA APN NOTIFIED.
--- NOTE | 2020-12-29 04:49 | NUR ---
PATIENT RELEASED TO HOME.
--- NOTE | 2021-01-05 15:31 | CN ---
PATIENT NAME:SANA ZHAO MEDICAL RECORD: [id number] : 39 LOCATION:[facility] ADMIT DATE: 12/17/20 ACCOUNT: [id number] CONSULTING PHYSICIAN: JANEE RILEY MD REFERRING PHYSICIAN: WILBERT DAWSON MD DATE OF CONSULTATION: 12/27/2020 HISTORY OF PRESENT ILLNESS: The patient is an 80-year-old male with multiple medical problems including acute kidney injury/hemodialysis, lactic acidosis, sepsis, hypotension, hyperlipidemia, history of total cystectomy -- chronic, who noted to have an abnormal troponin. The patient denies chest pain symptoms. I was asked to evaluate him from a cardiovascular standpoint. PAST MEDICAL HISTORY: Significant for, 1. Abnormal troponin -- multifactorial -- secondary to probably sepsis/end-stage renal disease on hemodialysis. 2. Acute kidney injury -- hemodialysis. 3. Sepsis. 4. Lactic acidosis. 5. Hypotension. 6. Hyperlipidemia. 7. History of total cystectomy 8. Obesity. PHYSICAL EXAMINATION: GENERAL: Elderly male in no apparent distress. VITAL SIGNS: Blood pressure 120s/40s, pulse 70s (regular). The patient is alert and responsive -- hemodialysis in process. Family at bedside. HEART: Regular rhythm and rate without appreciated murmurs, gallops, or rubs. LUNGS: Breath sounds bilaterally. ABDOMEN: Obese. EXTREMITIES: Pneumatic compression hose bilaterally. LABORATORY DATA: White blood cell count 24.5, hemoglobin and hematocrit 11/34.4 and platelet count is 117. Sodium 140, potassium 5.1, BUN 98, creatinine is 3.7, AST 898, and ALT 352 (elevated). Total CK 490, (elevated MB 2.5 - negative). Troponin 0.258. Albumin 1.9. EKG, sinus rhythm at 75 beats per minute with poor R-wave progressions V1 through V4, no acute ST-T wave abnormalities. ASSESSMENT AND PLAN: 1. Abnormal troponin -- multifactorial, perhaps secondary to sepsis, lactic acidosis, renal failure -- hemodialysis. 2. Acute kidney insufficiency -- hemodialysis. 3. Hypotension. 4. Sepsis. 5. Hyperlipidemia. 6. History of total cystectomy. PLAN: 1. Continue with current medical management at this time. 2. Abnormal troponin is multifactorial given the patient's overall medical conditions. I would recommend echocardiogram to assess LV function and valvular status. Further recommendations clinically indicated. CONSULT REPORT [id number] SANA ZHAO Thank you for allowing me to participate in care of this patient. TRANSINT:[id number] Voice Confirmation ID: [id number] DOCUMENT ID: [id number] JANEE RILEY MD at 1531 CC: [id number] DICTATION DATE: 12/27/201418 BIOMEDICAL EQUIPMENT TECHNICIAN: 12/29/202200 DIS IN 12/29/20 [id number] [place] [address]
== END 2020-12-29 04:50 | DRG 871 ==
LOC: D.ICU 13:30 → D.MS 13:30 → D.ICU 16:57 → D.M2 12-21 14:29 → D.ICU 12-26 11:27
PROVIDERS: Family Medicine; Internal Medicine; Internal Medicine Pulmonary Disease; ADMIT Emergency Medicine; ATTEND Emergency Medicine
PROC: 05HM33Z Insertion of Infusion Device into Right Internal Jugular Vein, Percutaneous Approach (ICD-10-PCS; principal; 2020-12-17)
PROC: 03HC33Z Insertion of Infusion Device into Left Radial Artery, Percutaneous Approach (ICD-10-PCS; 2020-12-17)
PROC: 05HM33Z Insertion of Infusion Device into Right Internal Jugular Vein, Percutaneous Approach (ICD-10-PCS; 2020-12-26)
DX: A41.9 Sepsis, unspecified organism (principal); R65.21 Severe sepsis with septic shock; K72.00 Acute and subacute hepatic failure without coma; N17.0 Acute kidney failure with tubular necrosis; J96.01 Acute respiratory failure with hypoxia; J18.9 Pneumonia, unspecified organism; N10 Acute pyelonephritis; N17.9 Acute kidney failure, unspecified; E87.2 Acidosis; B96.89 Other specified bacterial agents as the cause of diseases classified elsewhere; E87.5 Hyperkalemia; M19.90 Unspecified osteoarthritis, unspecified site; E78.5 Hyperlipidemia, unspecified; G62.9 Polyneuropathy, unspecified; Z85.46 Personal history of malignant neoplasm of prostate; Z85.51 Personal history of malignant neoplasm of bladder; Z66 Do not resuscitate